=== PATIENT | male | born 1955 | race Two or more races ===

== ENCOUNTER 2023-03-14 16:41 | Inpatient (IN) | payer OTHER ==
[~2023-03-14] VITALS: Ht 180.3 cm; Wt 113.4 kg
[2023-03-14] MEDS ORDERED: BUMETANIDE1 MG PO (17:52)
[2023-03-14] MEDS ORDERED: ISOSORBIDE DINI30 MG PO (17:52)
[2023-03-14] MEDS ORDERED: SPIRONOLACTONE25 MG PO (17:53)
[2023-03-14] MEDS ORDERED: DILTIAZEM ER240 M3 PO (17:53)
[2023-03-14] MEDS ORDERED: LOSARTAN POTAS100 MG PO (17:53)
[2023-03-14] MEDS ORDERED: HORIZANT300 MG PO (17:53)
[2023-03-14] MEDS ORDERED: SERTRALINE20 MG/1 ML PO (17:54)
[2023-03-14] MEDS ORDERED: MEMANTINE H2 MG/1 ML PO (17:54)
[2023-03-14] MEDS ORDERED: NOVOLIN 70100 UNIT/1 IM (17:55)
[2023-03-14 19:02] LABS: HEMATOCRIT 25.5 % (39.0-48.0); MEAN CELL VOLUME 92.1 fL (80.0-100.00); MEAN CORPUSCULAR HGB CONC 32.2 g/dl (32.0-36.0); RED BLOOD COUNT 2.77 M/uL (4.00-6.00); RED CELL DISTRIBUTION WIDTH 15.4 % (11.5-14.5)
[2023-03-14 19:07] LABS: HEMOGLOBIN 8.2 g/dL (13-16.00); MEAN CORPUSCULAR HEMOGLOBIN 29.6 pg (27.00-32.0); PLATELET COUNT 513 K/uL (150-450)
[2023-03-14 19:16] LABS: INR 0.98; PARTIAL THROMBOPLASTIN TIME 27.7 SECONDS (22.0-34.0); PROTHROMBIN TIME 10.3 SECONDS (9.0-11.5)
[2023-03-14 19:18] LABS: PH,URINE 5.5 (5.0-8.0); URINE APPEARANCE Clear; URINE BILIRRUBIN Negative (NEGATIVE); URINE BLOOD Trace; URINE COLOR Yellow; URINE LEUKOCYTE Negative; URINE NITRATE Negative; URINE UROBILINOGEN 0.2 E.U./dl
[2023-03-14 19:22] LABS: URINE BACTERIA 31.4 uL (0.0-1933); URINE WBC 3.7 uL (0.0-23.2)
[2023-03-14 19:24] LABS: CALCIUM 10.4 mg/dL (8.5-10.1)
[2023-03-14 19:29] LABS: URINE GLUCOSE 100 MG/DL (NEGATIVE); URINE PROTEIN 300 (NEGATIVE)
[2023-03-14 19:44] LABS: GFR 4.4
[2023-03-14 19:46] LABS: CREATININE SERUM 11.6 mg/dL (0.70-1.30)
[2023-03-14 19:47] LABS: POTASSIUM 7.09 mEq/L (3.5-5.1)
[2023-03-14 20:56] LABS: ABG PH 7.239 (7.35-7.45); ABG pCO2 29.4 mmHg (35-45); BASE EXCESS -13.6 mmol/l; BICARBONATE 12.3 mmol/l (23-25); SaO2 95.5 %; Tco2 13.2 mmol/l
[2023-03-14 20:57] LABS: allen test SATISFACTORY; o2 21 %; puncture site RADIAL LEFT
[2023-03-15 01:19] LABS: CKMB 5.1 NG/ML (0.5-3.6)
[2023-03-15 05:57] LABS: ABG PH 7.271 (7.35-7.45); ABG PO2 116.3 mmHg (80-100); ABG pCO2 29.3 mmHg (35-45)
[2023-03-15 05:58] LABS: BASE EXCESS -12.1 mmol/l; BICARBONATE 13.2 mmol/l (23-25); SaO2 97.5 %; Tco2 14.1 mmol/l; allen test SATISFACTORY; o2 28 %; puncture site RADIAL LEFT
[2023-03-15 07:36] LABS: PH,URINE 5.5 (5.0-8.0); URINE APPEARANCE Clear; URINE BILIRRUBIN Negative (NEGATIVE); URINE BLOOD Large; URINE COLOR Yellow; URINE LEUKOCYTE Negative; URINE NITRATE Negative; URINE UROBILINOGEN 0.2 E.U./dl
[2023-03-15 07:38] LABS: URINE BACTERIA 210.4 uL (0.0-1933); URINE EPITHELIAL CELLS 15.6 uL (0.0-38.8); URINE RBC 1534.3 uL (0.0-20.8); URINE WBC 41.2 uL (0.0-23.2)
[2023-03-15 07:47] LABS: URINE GLUCOSE 100 MG/DL (NEGATIVE); URINE PROTEIN 300 (NEGATIVE)
[2023-03-15 08:05] LABS: HEMATOCRIT 24.3 % (39.0-48.0); MEAN CELL VOLUME 91.7 fL (80.0-100.00); MEAN CORPUSCULAR HGB CONC 32.8 g/dl (32.0-36.0); RED BLOOD COUNT 2.64 M/uL (4.00-6.00); RED CELL DISTRIBUTION WIDTH 15.4 % (11.5-14.5)
[2023-03-15 08:32] LABS: INR 0.98; PARTIAL THROMBOPLASTIN TIME 25.7 SECONDS (22.0-34.0); PROTHROMBIN TIME 10.3 SECONDS (9.0-11.5)
[2023-03-15 08:56] LABS: CKMB 5.3 NG/ML (0.5-3.6)
[2023-03-15 09:01] LABS: ALBUMIN 3.3 gm/dL (3.4-5.0); ALKALINE PHOSPHATASE 58 U/L (50-136); ALT/SGPT 17 U/L (12-78); AST/SGOT 10 U/L (15-37); BILIRUBIN TOTAL 0.43 mg/dL (0.3-1.2); BILIRUBIN,CONJUGATED < 0.10 mg/dL (0.0-0.2); BILIRUBIN,UNCONJUGATED 0.33 mg/dL (0.0-0.6); CHLORIDE 114 mmol/L (98-107); CHOL HDL RATIO 4.3 (0-5.0); CHOLESTEROL 153 mg/dL (0-200); GLOBULINA 3.1 G/DL (2.4-3.5); GLUCOSE FASTING 121 mg/dL (65-100); HDL 36 mg/dl (40-60); SODIUM 139 mmol/L (136-145); TOTAL PROTEIN 6.4 gm/dL (6.4-8.2)
[2023-03-15 09:32] LABS: MEAN CORPUSCULAR HEMOGLOBIN 30.3 pg (27.00-32.0)
[2023-03-15 09:33] LABS: PLATELET COUNT 527 K/uL (150-450)
[2023-03-15 09:52] LABS: ANION GAP 19 (10.0-20.0); BUN CREA RATIO 10 (7.0-25.0); C-REACTIVE PROTEIN 0.96 MG/DL (0.00-0.29); GFR 4.78; LDL 75 mg/dl (0-130); OSMOLALITY SERUM 313 MOSM/KG (275-295); VLDL 41 (0-39)
[2023-03-15 09:54] LABS: POTASSIUM 6.85 mEq/L (3.5-5.1)
[2023-03-15 09:55] LABS: BLOOD UREA NITROGEN 108 mg/dL (7-18)
[2023-03-15 09:56] LABS: CARBON DIOXIDE 13 mEq/L (21-32); TRIGLYCERIDES 208 mg/dL (0-150)
[2023-03-15 11:27] LABS: ERYTHROCYTE SEDIMENTATION RATE > 130 mm/hr
[2023-03-16 09:13] LABS: PARTIAL THROMBOPLASTIN TIME 26.5 SECONDS (22.0-34.0); PROTHROMBIN TIME 10.5 SECONDS (9.0-11.5)
[2023-03-16 12:20] LABS: ALBUMIN 3.2 gm/dL (3.4-5.0); CALCIUM 9.6 mg/dL (8.5-10.1); PHOSPHOROUS 7.2 mg/dL (2.5-4.9)
[2023-03-16 12:34] LABS: GFR 4.83; POTASSIUM 5.94 mEq/L (3.5-5.1)
[2023-03-16 12:35] LABS: CREATININE SERUM 10.7 mg/dL (0.70-1.30)
[2023-03-17 07:18] LABS: CALCIUM 8.7 mg/dL (8.5-10.1); GFR 5.5; POTASSIUM 3.57 mEq/L (3.5-5.1)
[2023-03-17 08:09] LABS: CREATININE SERUM 9.57 mg/dL (0.70-1.30)
[2023-03-17 08:28] LABS: MEAN CELL VOLUME 90.6 fL (80.0-100.00); MEAN CORPUSCULAR HGB CONC 33.4 g/dl (32.0-36.0); PLATELET COUNT 462 K/uL (150-450); RED BLOOD COUNT 2.38 M/uL (4.00-6.00); RED CELL DISTRIBUTION WIDTH 14.9 % (11.5-14.5)
[2023-03-17 08:42] LABS: MEAN CORPUSCULAR HEMOGLOBIN 30.2 pg (27.00-32.0)
[2023-03-17 08:44] LABS: HEMATOCRIT 21.5 % (39.0-48.0); HEMOGLOBIN 7.2 g/dL (13-16.00)
[2023-03-18 09:34] LABS: HEMATOCRIT 26.1 % (39.0-48.0); HEMOGLOBIN 8.6 g/dL (13-16.00); MEAN CELL VOLUME 90.5 fL (80.0-100.00); MEAN CORPUSCULAR HEMOGLOBIN 29.7 pg (27.00-32.0); MEAN CORPUSCULAR HGB CONC 32.8 g/dl (32.0-36.0); PLATELET COUNT 433 K/uL (150-450); RED BLOOD COUNT 2.89 M/uL (4.00-6.00); RED CELL DISTRIBUTION WIDTH 15.2 % (11.5-14.5)
[2023-03-19 20:26] LABS: HEMATOCRIT 26.4 % (39.0-48.0); MEAN CELL VOLUME 89.5 fL (80.0-100.00); MEAN CORPUSCULAR HGB CONC 32.9 g/dl (32.0-36.0); PLATELET COUNT 370 K/uL (150-450); RED BLOOD COUNT 2.95 M/uL (4.00-6.00); RED CELL DISTRIBUTION WIDTH 14.4 % (11.5-14.5)
[2023-03-19 20:27] LABS: HEMOGLOBIN 8.7 g/dL (13-16.00); MEAN CORPUSCULAR HEMOGLOBIN 29.4 pg (27.00-32.0)
[2023-03-20 07:57] LABS: HEMATOCRIT 26.1 % (39.0-48.0); MEAN CELL VOLUME 90.1 fL (80.0-100.00); MEAN CORPUSCULAR HEMOGLOBIN 29.7 pg (27.00-32.0); PLATELET COUNT 386 K/uL (150-450); RED BLOOD COUNT 2.89 M/uL (4.00-6.00); RED CELL DISTRIBUTION WIDTH 14.8 % (11.5-14.5)
[2023-03-20 08:01] LABS: HEMOGLOBIN 8.6 g/dL (13-16.00)
[2023-03-20 08:22] LABS: CALCIUM 8.2 mg/dL (8.5-10.1); POTASSIUM 3.04 mEq/L (3.5-5.1)
[2023-03-20 09:07] LABS: CREATININE SERUM 5.67 mg/dL (0.70-1.30); GFR 10.06
[2023-03-20 11:12] LABS: ABG PH 7.399 (7.35-7.45); ABG PO2 66.7 mmHg (80-100); ABG pCO2 41.4 mmHg (35-45); BASE EXCESS 0.2 mmol/l; SaO2 92.9 %; Tco2 26.3 mmol/l; o2 36 %
[2023-03-20 11:13] LABS: allen test SATISFACTORY; puncture site RADIAL LEFT
[2023-03-22 08:45] LABS: ALBUMIN 1.8 gm/dL (3.4-5.0); CALCIUM 7.8 mg/dL (8.5-10.1); GFR 10.42; PHOSPHOROUS 4.1 mg/dL (2.5-4.9); POTASSIUM 3.28 mEq/L (3.5-5.1)
[2023-03-22 09:06] LABS: CREATININE SERUM 5.5 mg/dL (0.70-1.30)
[2023-03-22 09:39] LABS: MEAN CELL VOLUME 92.2 fL (80.0-100.00); MEAN CORPUSCULAR HGB CONC 33.2 g/dl (32.0-36.0); PLATELET COUNT 337 K/uL (150-450); RED BLOOD COUNT 2.42 M/uL (4.00-6.00)
[2023-03-22 10:01] LABS: HEMATOCRIT 22.4 % (39.0-48.0); HEMOGLOBIN 7.4 g/dL (13-16.00); MEAN CORPUSCULAR HEMOGLOBIN 30.5 pg (27.00-32.0)
[2023-03-23 09:48] LABS: HEMATOCRIT 25.2 % (39.0-48.0); MEAN CELL VOLUME 89.2 fL (80.0-100.00); MEAN CORPUSCULAR HEMOGLOBIN 29.6 pg (27.00-32.0); MEAN CORPUSCULAR HGB CONC 33.1 g/dl (32.0-36.0); PLATELET COUNT 376 K/uL (150-450); RED BLOOD COUNT 2.83 M/uL (4.00-6.00); RED CELL DISTRIBUTION WIDTH 15.3 % (11.5-14.5)
[2023-03-23 09:49] LABS: HEMOGLOBIN 8.4 g/dL (13-16.00)
[2023-03-24 19:38] LABS: HEMATOCRIT 29.9 % (39.0-48.0); HEMOGLOBIN 9.8 g/dL (13-16.00); MEAN CELL VOLUME 88.9 fL (80.0-100.00); MEAN CORPUSCULAR HEMOGLOBIN 29.2 pg (27.00-32.0); MEAN CORPUSCULAR HGB CONC 32.9 g/dl (32.0-36.0); PLATELET COUNT 411 K/uL (150-450); RED BLOOD COUNT 3.36 M/uL (4.00-6.00); RED CELL DISTRIBUTION WIDTH 14.6 % (11.5-14.5)
[2023-03-26 08:10] LABS: hav igm Negative (Negative); hcv Non Reactive (Non Reactive); hep b c Negative (Negative)
[2023-03-26 12:04] LABS: ABG PH 7.375 (7.35-7.45)
[2023-03-26 12:05] LABS: ABG pCO2 36.2 mmHg (35-45); BASE EXCESS -3.8 mmol/l; BICARBONATE 20.7 mmol/l (23-25); SaO2 88.8 %; Tco2 21.8 mmol/l
[2023-03-26 12:06] LABS: ABG PO2 58.4 mmHg (80-100); allen test SATISFACTORY; o2 32 %; puncture site RADIAL RIGHT
[2023-03-28 07:40] LABS: HEMATOCRIT 27.3 % (39.0-48.0); MEAN CELL VOLUME 88.4 fL (80.0-100.00); MEAN CORPUSCULAR HEMOGLOBIN 29.1 pg (27.00-32.0); MEAN CORPUSCULAR HGB CONC 32.9 g/dl (32.0-36.0); PLATELET COUNT 521 K/uL (150-450); RED BLOOD COUNT 3.09 M/uL (4.00-6.00); RED CELL DISTRIBUTION WIDTH 14.8 % (11.5-14.5)
[2023-03-28 14:30] LABS: ABG PH 7.457 (7.35-7.45); ABG PO2 54.8 mmHg (80-100); ABG pCO2 34.3 mmHg (35-45); BASE EXCESS 0.5 mmol/l; BICARBONATE 23.7 mmol/l (23-25); SaO2 89.9 %
[2023-03-28 14:31] LABS: Tco2 24.8 mmol/l; allen test SATISFACTORY; o2 21 %; puncture site RADIAL LEFT
== END 2023-03-31 20:11 | disposition home or self-care (01) | DRG 673 ==
LOC: ER 16:41 → ICU-2 22:57 → ICU 22:57 → SURH 03-26 19:46
PROVIDERS: General Practice; Internal Medicine; Internal Medicine Infectious Disease; Specialist/Technologist, Other Nephrology; ADMIT Internal Medicine; ATTEND Internal Medicine
PROC: 0JHD3XZ Insertion of Tunneled Vascular Access Device into Right Upper Arm Subcutaneous Tissue and Fascia, Percutaneous Approach (ICD-10-PCS; principal; 2023-03-14)
PROC: 5A1D70Z Performance of Urinary Filtration, Intermittent, Less than 6 Hours Per Day (ICD-10-PCS; 2023-03-14)
PROC: BT41ZZZ Ultrasonography of Right Kidney (ICD-10-PCS; 2023-03-14)
PROC: 30243N1 Transfusion of Nonautologous Red Blood Cells into Central Vein, Percutaneous Approach (ICD-10-PCS; 2023-03-17)
PROC: 5A1D70Z Performance of Urinary Filtration, Intermittent, Less than 6 Hours Per Day (ICD-10-PCS; 2023-03-19)
PROC: BW40ZZZ Ultrasonography of Abdomen (ICD-10-PCS; 2023-03-21)
PROC: B54PZZZ Ultrasonography of Bilateral Upper Extremity Veins (ICD-10-PCS; 2023-03-24)
DX: N17.9 Acute kidney failure, unspecified (principal); J18.9 Pneumonia, unspecified organism; E87.20 Acidosis, unspecified; I12.0 Hypertensive chronic kidney disease with stage 5 chronic kidney disease or end stage renal disease; L02.214 Cutaneous abscess of groin; J91.8 Pleural effusion in other conditions classified elsewhere; E87.5 Hyperkalemia; D64.9 Anemia, unspecified; I16.0 Hypertensive urgency; I12.9 Hypertensive chronic kidney disease with stage 1 through stage 4 chronic kidney disease, or unspecified chronic kidney disease; N18.9 Chronic kidney disease, unspecified; D63.1 Anemia in chronic kidney disease; E66.9 Obesity, unspecified; N18.6 End stage renal disease; B96.1 Klebsiella pneumoniae [K. pneumoniae] as the cause of diseases classified elsewhere; R79.82 Elevated C-reactive protein (CRP); R09.02 Hypoxemia; B95.2 Enterococcus as the cause of diseases classified elsewhere

== ENCOUNTER 2024-06-17 11:25 | Inpatient (IN) | payer OTHER ==
[~2024-06-17] VITALS: Ht 180.3 cm; Wt 99.8 kg
[~2024-06-17 11:25] MED LIST: BUMETANIDE1 MG PO; DILTIAZEM ER240 M3 PO; HORIZANT300 MG PO; ISOSORBIDE DINI30 MG PO; LOSARTAN POTAS100 MG PO; MEMANTINE H2 MG/1 ML PO; NOVOLIN 70100 UNIT/1 IM; SERTRALINE20 MG/1 ML PO; SPIRONOLACTONE25 MG PO
--- NOTE | 2024-06-17 12:00 | NUR ---
SE RECIBE PTE ALERTA EN COMPANIA DE FAMILIAR EN SILLA DE CESAR.PTE REFIERE TENER DIFICULTAD RESPIRATORIA,DOLOR DE PECHO Y VOMITOS DESDE HOY EN LA MANANA.PTE REFIERE TENER DIALISIS EL HILARIO DE HOY.PTE DE DR.VICTOR RYAN.SE HARRY EKG Y SE PRESENTA A EL CUAL ORDENA UBICAR PTE EN CHEST PAIN.SE OBSERVA WUINTON EN LADO DERECHO DE PECHO VENDAJES LIMPIOS Y SECOS.
[2024-06-17] MEDS ORDERED: HYDRALAZINE HCL10 MG PO (12:05)
[2024-06-17] MEDS ORDERED: ASPIRIN 325 MG TABLET.EC PO STA (12:19)
[2024-06-17] MEDS ORDERED: FUROsemide 40 MG/4 ML VIAL ONE ×2 (12:30→22:02)
[2024-06-17] MEDS ORDERED: FUROsemide 40 MG/4 ML VIAL IV ONE ×2 (12:30→22:15)
--- NOTE | 2024-06-17 12:30 | NUR ---
SE RECIBE PTE ALERTA ORIENTADO X3.SE CHAN MUESTRAS DE LABORATORIO USANDO MEDIDAS ASEPTICAS.S ADMINISTRAN MEDICAMENTOS JACI ORDEN MEDICA.SE ORIENTA PTE SOBRE OBJETIVO DE [place] MEDICO.SE CONECTA PTE A MONITOR CARDIACO.SE COLOCA SONDA URINARIA A GRAVEDAD USANDO MEDIDAS ASEPTICAS E ESTERILES.
[2024-06-17 13:05] LABS: ABG PH 7.396 (7.35-7.45); BASE EXCESS -2.6 mmol/l; BICARBONATE 21.6 mmol/l (23-25); SaO2 74.4 %; Tco2 22.7 mmol/l
[2024-06-17 13:07] LABS: PH,URINE 7.5 (5.0-8.0); URINE APPEARANCE Cloudy; URINE BILIRRUBIN Negative (NEGATIVE); URINE BLOOD Moderate; URINE COLOR Yellow; URINE KETONE Negative (NEGATIVE); URINE LEUKOCYTE Negative; URINE NITRATE Negative; URINE PROTEIN >=1000 (NEGATIVE); URINE UROBILINOGEN 0.2 E.U./dl
[2024-06-17 13:08] LABS: URINE BACTERIA 48.9 uL (0.0-1933); URINE EPITHELIAL CELLS 6.4 uL (0.0-38.8); URINE RBC 243.3 uL (0.0-20.8); URINE WBC 53.5 uL (0.0-23.2)
[2024-06-17] MEDS ORDERED: ASPIRIN 325 MG TABLET.EC PO ONE (13:09)
[2024-06-17] MEDS ORDERED: IPRATROPIUM BROMIDE 0.5 MG/2.5 ML AMPUL.NEB IH ONE ×3 (13:09→18:10)
[2024-06-17 13:12] LABS: HEMATOCRIT 29.5 % (39.0-48.0); MEAN CELL VOLUME 96.9 fL (80.0-100.00); MEAN CORPUSCULAR HGB CONC 32.6 g/dl (32.0-36.0); PLATELET COUNT 395 K/uL (150-450); RED BLOOD COUNT 3.05 M/uL (4.00-6.00); RED CELL DISTRIBUTION WIDTH 16.8 % (11.5-14.5)
[2024-06-17 13:14] LABS: HEMOGLOBIN 9.6 g/dL (13-16.00); MEAN CORPUSCULAR HEMOGLOBIN 31.4 pg (27.00-32.0)
[2024-06-17 13:39] LABS: URINE CAST 1.17 uL (0.0-1.40); URINE GLUCOSE 500 MG/DL (NEGATIVE)
[2024-06-17 13:40] LABS: ABG PO2 40.1 mmHg (80-100)
[2024-06-17 13:41] LABS: allen test SATISFACTORY; o2 21 %; puncture site RADIAL LEFT
[2024-06-17] MEDS ORDERED: ACETAMINOPHEN 500 MG GEL..CAP PO ONE (14:01)
[2024-06-17 14:05] LABS: INR 1.03; PARTIAL THROMBOPLASTIN TIME 26.2 SECONDS (22.0-34.0); PROTHROMBIN TIME 11.2 SECONDS (9.0-11.5)
[2024-06-17 14:15] LABS: CALCIUM 9.1 mg/dL (8.5-10.1); GFR 6.37; POTASSIUM 5.32 mEq/L (3.5-5.1)
[2024-06-17 14:25] LABS: CREATININE SERUM 8.4 mg/dL (0.70-1.30)
[2024-06-17] MEDS ORDERED: NITROGLYCERIN IN 5 % DEXTROSE 50 MG/250 ML BOTTLE IV SCH (14:30)
[2024-06-17] MEDS ORDERED: NITROGLYCERIN IN 5 % DEXTROSE 50 MG/250 ML BOTTLE IV ONE (14:38)
--- NOTE | 2024-06-17 15:36 | NUR ---
SE RECIBE PTE ALERTA Y ORIENTADO X3 EN CAMA BAJA CON BARANDAS LEEVADAS Y CAEBZAL A [address]. SE OBSERVA NONREBREATHING AL 100%, LA CUEL TOLERA AL MOMENTO. PTE CONECTADO A MONITOR CARDIACO Y SATUROMETRO. CANLIZADO EN MANO IZQUIERDA CON ANGIO #20 Y #24 PATENTE LAINA DE EDEMA Y ENROJEICMIENTO. RECIBIENDO TRIDIL 50MG/250ML BAJANDO A 3MLS/HR. SE OBSERVA COURTNEY EL LADO DERECHO, VENDAJE LIMPIO Y SECO. SONDA URINARIA BAJANDO A GRAVEDAD, SE OBSERVA ORINA COLOR AMARILLO INTENSO. EXTREMIDADES INFERIORES CON EDEMA. PENDIENTE CONSULTA CON DR. MARTIN.
[2024-06-17] MEDS ORDERED: CEFTRIAXONE SODIUM 2,000 MG in 0.9 % SODIUM CHLORIDE 100 ML IV SCH (17:31)
[2024-06-17] MEDS ORDERED: FUROsemide 20 MG/2 ML VIAL IV SCH (17:31)
[2024-06-17] MEDS ORDERED: LEVALBUTEROL HCL 1.25 MG/3 ML SOLUTION IH SCH ×2 (17:36→17:45)
[2024-06-17] MEDS ORDERED: IPRATROPIUM BROMIDE 0.5 MG/2.5 ML AMPUL.NEB IH SCH ×2 (17:36→17:45)
[2024-06-17] MEDS ORDERED: VANCOMYCIN HCL 1,000 MG VIAL IV ONE (17:45)
[2024-06-17] MEDS ORDERED: ACETAMINOPHEN 500 MG GEL..CAP PO PRN (17:45)
[2024-06-17] MEDS ORDERED: LEVALBUTEROL HCL 1.25 MG/3 ML SOLUTION IH ONE (18:10)
[2024-06-17] MEDS ORDERED: VANCOMYCIN HCL 1,000 MG VIAL ONE (18:11)
[2024-06-17] MEDS ORDERED: CEFTRIAXONE SODIUM 2,000 MG VIAL ONE (18:11)
[2024-06-17] MEDS ORDERED: FUROsemide 20 MG/2 ML VIAL ONE (18:11)
[2024-06-17 19:02] VITALS: BP 141/91; O2SAT 100
[2024-06-17 19:31] LABS: D DIMER 11.87 MG/L; PARTIAL THROMBOPLASTIN TIME 30.5 SECONDS (22.0-34.0)
[2024-06-17 19:42] LABS: INR 1.05; PROTHROMBIN TIME 11.4 SECONDS (9.0-11.5)
[2024-06-17] MEDS ORDERED: HEPARIN SODIUM,PORCINE 1,000 UNITS/ML VIAL IV SCH (21:00)
[2024-06-17] MEDS ORDERED: HEPARIN SODIUM,PORCINE 1,000 UNITS/ML VIAL SPEPROC ONE ×2 (21:00)
[2024-06-17 21:21] VITALS: BP 133/86; O2SAT 100
[2024-06-17 23:00] VITALS: BP 141/62; O2SAT 98
[2024-06-18] VITALS (12 sets, daily range): BP systolic 119–188; BP diastolic 65–108; O2SAT 98–100
[2024-06-18 07:50] LABS: CHOL HDL RATIO 2.1 (0-5.0); MAGNESIUM 2.5 mg/dL (1.8-2.4); PHOSPHOROUS 6.8 mg/dL (2.5-4.9); TSH 1.29 uIU/mL (0.358-3.74)
[2024-06-18] MEDS ORDERED: LEVALBUTEROL HCL 1.25 MG/3 ML SOLUTION IH ONE ×3 (08:03→16:02)
[2024-06-18] MEDS ORDERED: IPRATROPIUM BROMIDE 0.5 MG/2.5 ML AMPUL.NEB IH ONE ×2 (08:03→13:11)
[2024-06-18] MEDS ORDERED: FUROsemide 20 MG TABLET PO ONE (08:57)
[2024-06-18] MEDS ORDERED: CEFTRIAXONE SODIUM 2,000 MG VIAL ONE (08:58)
[2024-06-18] MEDS ORDERED: FAMOTIDINE/PF 20 MG/2 ML VIAL ONE (08:58)
[2024-06-18] MEDS ORDERED: ENOXAPARIN SODIUM 30 MG/0.3 ML SYRINGE SUBCUTANEO SCH (09:00)
[2024-06-18] MEDS ORDERED: FAMOTIDINE/PF 20 MG in 0.9 % SODIUM CHLORIDE 8 ML IV PUSH SCH (09:00)
[2024-06-18 10:29] LABS: ABG PO2 192.8 mmHg (80-100); ABG pCO2 42.1 mmHg (35-45); BASE EXCESS -5.3 mmol/l; BICARBONATE 20.7 mmol/l (23-25); SaO2 99.5 %
[2024-06-18 15:32] LABS: o2 100 %
[2024-06-18 15:33] LABS: allen test SATISFACTORY; puncture site RADIAL RIGHT
[2024-06-18] MEDS ORDERED: HEPARIN SODIUM,PORCINE 5,000 UNITS/ML VIAL ONE ×2 (15:59→16:00)
[2024-06-18] MEDS ORDERED: MEROPENEM 500 MG/VIAL VIAL IV SCH (17:00)
[2024-06-18] MEDS ORDERED: VANCOMYCIN HCL 5 MG/ML REDILUIDO IV ONE (18:00)
[2024-06-18] MEDS ORDERED: DIPHENHYDRAMINE HCL 50 MG/ML VIAL 1ML ONE (18:00)
[2024-06-18] MEDS ORDERED: DIPHENHYDRAMINE HCL 50 MG/ML VIAL 1ML IV STA (19:02)
[2024-06-18] MEDS ORDERED: CLEVIDIPINE BUTYRATE 50 MG/100 ML VIAL IV ONE (22:29)
[2024-06-18] MEDS ORDERED: CLEVIDIPINE BUTYRATE 100 ML IV SCH (22:30)
[2024-06-19] VITALS (22 sets, daily range): BP systolic 118–186; BP diastolic 65–99; O2SAT 93–100
[2024-06-19] MEDS ORDERED: LORazepam 2 MG/ML VIAL ONE (04:36)
[2024-06-19] MEDS ORDERED: LORazepam 2 MG/ML VIAL IV ONE (04:45)
[2024-06-19 08:04] LABS: HEMATOCRIT 24.5 % (39.0-48.0); MEAN CELL VOLUME 97.4 fL (80.0-100.00); MEAN CORPUSCULAR HGB CONC 32.3 g/dl (32.0-36.0); PLATELET COUNT 292 K/uL (150-450); RED BLOOD COUNT 2.51 M/uL (4.00-6.00); RED CELL DISTRIBUTION WIDTH 16.6 % (11.5-14.5)
[2024-06-19 08:24] LABS: ALBUMIN 2.9 gm/dL (3.4-5.0); BILIRUBIN TOTAL 0.53 mg/dL (0.3-1.2); CALCIUM 8.8 mg/dL (8.5-10.1); GLOBULINA 3.3 G/DL (2.4-3.5); MAGNESIUM 2.5 mg/dL (1.8-2.4); POTASSIUM 5.18 mEq/L (3.5-5.1); TOTAL PROTEIN 6.2 gm/dL (6.4-8.2)
[2024-06-19 08:33] LABS: MEAN CORPUSCULAR HEMOGLOBIN 31.4 pg (27.00-32.0)
[2024-06-19 08:34] LABS: HEMOGLOBIN 7.9 g/dL (13-16.00)
[2024-06-19 10:28] LABS: C-REACTIVE PROTEIN 32.3 MG/DL (0.00-0.29); GFR 7.64
[2024-06-19 10:29] LABS: CREATININE SERUM 7.18 mg/dL (0.70-1.30)
[2024-06-19 10:39] LABS: ABG PH 7.293 (7.35-7.45); ABG PO2 104.4 mmHg (80-100); ABG pCO2 40.4 mmHg (35-45); BASE EXCESS -6.9 mmol/l; BICARBONATE 19.1 mmol/l (23-25); Tco2 20.4 mmol/l
[2024-06-19 15:25] LABS: allen test SATISFACTORY; o2 100 %; puncture site RADIAL RIGHT
[2024-06-19] MEDS ORDERED: HEPARIN SODIUM,PORCINE 5,000 UNITS/ML VIAL ONE (18:11)
[2024-06-19] MEDS ORDERED: AMIODARONE HCL 50 MG/ML AMPUL IV ONE ×2 (19:30→19:45)
[2024-06-19] MEDS ORDERED: AMIODARONE IN DEXTROSE,ISO-OSM 360 MG/200 ML IV.SOLN IV ONE (19:31)
[2024-06-19] MEDS ORDERED: INSULIN LISPRO 1,000 UNIT/10 ML UNITS SUBCUTANEO PRN (20:00)
[2024-06-19] MEDS ORDERED: DEXTROSE 50 % IN WATER 0.5 G/ML DISP.SYRIN IV PRN (20:00)
[2024-06-19] MEDS ORDERED: DIPHENHYDRAMINE HCL 50 MG/ML VIAL 1ML IV ONE (20:30)
[2024-06-19] MEDS ORDERED: HALOPERIDOL LACTATE 5 MG/ML AMPUL IM ONE (20:30)
[2024-06-19] MEDS ORDERED: VANCOMYCIN HCL 500 MG VIAL IV SCH (21:00)
[2024-06-19 23:34] LABS: HEMATOCRIT 32.6 % (39.0-48.0); HEMOGLOBIN 10.7 g/dL (13-16.00); MEAN CELL VOLUME 94.6 fL (80.0-100.00); MEAN CORPUSCULAR HEMOGLOBIN 31.1 pg (27.00-32.0); MEAN CORPUSCULAR HGB CONC 32.9 g/dl (32.0-36.0); PLATELET COUNT 260 K/uL (150-450); RED BLOOD COUNT 3.44 M/uL (4.00-6.00)
[2024-06-20] VITALS (24 sets, daily range): BP systolic 107–158; BP diastolic 63–95; O2SAT 90–100
[2024-06-20] MEDS ORDERED: AMIODARONE IN DEXTROSE,ISO-OSM 360 MG/200 ML IV.SOLN IV ONE (02:31)
[2024-06-20 08:22] LABS: ALBUMIN 2.7 gm/dL (3.4-5.0); BILIRUBIN TOTAL 0.69 mg/dL (0.3-1.2); CALCIUM 8.4 mg/dL (8.5-10.1); GFR 9.58; GLOBULINA 3.6 G/DL (2.4-3.5); MAGNESIUM 2.3 mg/dL (1.8-2.4); PHOSPHOROUS 7.2 mg/dL (2.5-4.9); POTASSIUM 5.09 mEq/L (3.5-5.1); TOTAL PROTEIN 6.3 gm/dL (6.4-8.2)
[2024-06-20 08:27] LABS: CREATININE SERUM 5.9 mg/dL (0.70-1.30)
[2024-06-20 09:11] LABS: HEMATOCRIT 31.1 % (39.0-48.0); MEAN CELL VOLUME 95.7 fL (80.0-100.00); MEAN CORPUSCULAR HEMOGLOBIN 30.8 pg (27.00-32.0); MEAN CORPUSCULAR HGB CONC 32.2 g/dl (32.0-36.0); PLATELET COUNT 260 K/uL (150-450); RED BLOOD COUNT 3.25 M/uL (4.00-6.00); RED CELL DISTRIBUTION WIDTH 18.2 % (11.5-14.5)
[2024-06-20] MEDS ORDERED: FUROsemide 40 MG/4 ML VIAL ONE (10:18)
[2024-06-20] MEDS ORDERED: FUROsemide 40 MG TABLET PO STA (10:24)
[2024-06-20] MEDS ORDERED: FUROsemide 40 MG/4 ML VIAL IV STA (10:29)
[2024-06-20] MEDS ORDERED: METOPROLOL TARTRATE 25 MG TABLET PO STA (13:55)
[2024-06-20 13:57] LABS: ABG PO2 65.6 mmHg (80-100); ABG pCO2 44.1 mmHg (35-45)
[2024-06-20 13:58] LABS: BASE EXCESS -7.7 mmol/l; BICARBONATE 19.3 mmol/l (23-25); SaO2 88.1 %; Tco2 20.6 mmol/l
[2024-06-20 13:59] LABS: allen test SATISFACTORY; o2 100 %; puncture site RADIAL RIGHT
[2024-06-20] MEDS ORDERED: HEPARIN SODIUM,PORCINE 5,000 UNITS/ML VIAL ONE (17:02)
[2024-06-20] MEDS ORDERED: CITRIC ACID/SODIUM CITRATE 30 ML BLIST.PACK PO SCH (18:09)
[2024-06-20] MEDS ORDERED: METOPROLOL TARTRATE 25 MG TABLET PO SCH (21:00)
[2024-06-21] VITALS (16 sets, daily range): BP systolic 105–159; BP diastolic 71–96; O2SAT 95–100
[2024-06-21 07:18] LABS: HEMATOCRIT 35.3 % (39.0-48.0); HEMOGLOBIN 11.4 g/dL (13-16.00); MEAN CELL VOLUME 94.8 fL (80.0-100.00); MEAN CORPUSCULAR HEMOGLOBIN 30.6 pg (27.00-32.0); MEAN CORPUSCULAR HGB CONC 32.3 g/dl (32.0-36.0); PLATELET COUNT 295 K/uL (150-450); RED BLOOD COUNT 3.73 M/uL (4.00-6.00)
[2024-06-21 07:27] LABS: ALBUMIN 2.8 gm/dL (3.4-5.0); BILIRUBIN TOTAL 0.71 mg/dL (0.3-1.2); CALCIUM 9.1 mg/dL (8.5-10.1); GFR 10.57; GLOBULINA 4.1 G/DL (2.4-3.5); MAGNESIUM 2.8 mg/dL (1.8-2.4); PHOSPHOROUS 7.7 mg/dL (2.5-4.9); POTASSIUM 5.59 mEq/L (3.5-5.1); TOTAL PROTEIN 6.9 gm/dL (6.4-8.2)
[2024-06-21 07:57] LABS: CREATININE SERUM 5.42 mg/dL (0.70-1.30)
[2024-06-21 08:37] LABS: ABG PH 7.237 (7.35-7.45); BASE EXCESS -8.2 mmol/l; BICARBONATE 19.1 mmol/l (23-25); SaO2 94.4 %; Tco2 20.6 mmol/l
[2024-06-21 14:23] LABS: allen test SATISFACTORY; o2 90 %; puncture site RADIAL LEFT
[2024-06-21] MEDS ORDERED: SODIUM POLYSTYRENE SULFONATE 15 G/4 TSP TSP PO NR (15:30)
[2024-06-21] MEDS ORDERED: HEPARIN SODIUM,PORCINE 5,000 UNITS/ML VIAL ONE (16:01)
[2024-06-21] MEDS ORDERED: HEPARIN SODIUM,PORCINE 5,000 UNITS/ML VIAL IJ SCH (16:30)
[2024-06-22] VITALS (11 sets, daily range): BP systolic 53–131; BP diastolic 28–88; O2SAT 100
[2024-06-22] MEDS ORDERED: NOREPINEPHRINE BITARTRATE 1 MG/ML AMPUL IV ONE (06:19)
[2024-06-22] MEDS ORDERED: NOREPINEPHRINE BITARTRATE 8 MG in DEXTROSE 5 % IN WATER 250 ML IV SCH (06:30)
[2024-06-22 06:33] LABS: HEMATOCRIT 38.5 % (39.0-48.0); HEMOGLOBIN 12.4 g/dL (13-16.00); MEAN CORPUSCULAR HEMOGLOBIN 30.7 pg (27.00-32.0); MEAN CORPUSCULAR HGB CONC 32.3 g/dl (32.0-36.0); PLATELET COUNT 388 K/uL (150-450); RED BLOOD COUNT 4.05 M/uL (4.00-6.00); RED CELL DISTRIBUTION WIDTH 17.9 % (11.5-14.5)
[2024-06-22 07:00] LABS: ALBUMIN 2.9 gm/dL (3.4-5.0); BILIRUBIN TOTAL 0.52 mg/dL (0.3-1.2); CALCIUM 9.5 mg/dL (8.5-10.1); GLOBULINA 4.5 G/DL (2.4-3.5); MAGNESIUM 3.1 mg/dL (1.8-2.4); TOTAL PROTEIN 7.4 gm/dL (6.4-8.2)
[2024-06-22 07:23] LABS: GFR 9.07
[2024-06-22 07:29] LABS: CREATININE SERUM 6.19 mg/dL (0.70-1.30)
[2024-06-22 07:30] LABS: PHOSPHOROUS 9.1 mg/dL (2.5-4.9); POTASSIUM 6.74 mEq/L (3.5-5.1)
[2024-06-22] MEDS ORDERED: SODIUM BICARBONATE 50MEQ/50ML VIAL IV ONE (08:49)
[2024-06-22 08:54] LABS: ABG PH 6.973 (7.35-7.45); ABG pCO2 97.6 mmHg (35-45)
[2024-06-22 08:55] LABS: ABG PO2 226.7 mmHg (80-100); BICARBONATE 22.1 mmol/l (23-25); SaO2 99.1 %; Tco2 25.1 mmol/l; allen test SATISFACTORY; o2 100 %; puncture site RADIAL RIGHT
[2024-06-22] MEDS ORDERED: SODIUM BICARBONATE 1 MEQ/ML DISP.SYRIN 50ML IV ONE (09:00)
[2024-06-22] MEDS ORDERED: INSULIN NPH HUMAN ISOPHANE 1,000 UNITS/10 ML UNITS SUBCUTANEO SCH (09:00)
[2024-06-22] MEDS ORDERED: PHENYLEPHRINE HCL 10 MG/ML AMPUL ONE (10:06)
[2024-06-22] MEDS ORDERED: PHENYLEPHRINE HCL 20 MG in 0.9 % SODIUM CHLORIDE 250 ML IV SCH (11:15)
== END 2024-06-22 10:25 | disposition expired ==
LOC: ER 11:28 → ICU-2 19:01 → ICU 06-18 21:43
PROVIDERS: Emergency Medicine; General Practice; Internal Medicine; Internal Medicine Infectious Disease; ADMIT Internal Medicine; ATTEND Internal Medicine
PROC: 02HV33Z Insertion of Infusion Device into Superior Vena Cava, Percutaneous Approach (ICD-10-PCS; principal; 2024-06-19)
PROC: 30233N1 Transfusion of Nonautologous Red Blood Cells into Peripheral Vein, Percutaneous Approach (ICD-10-PCS; 2024-06-19)
PROC: B24BZZZ Ultrasonography of Heart with Aorta (ICD-10-PCS; 2024-06-20)
DX: I13.2 Hypertensive heart and chronic kidney disease with heart failure and with stage 5 chronic kidney disease, or end stage renal disease (principal); J96.00 Acute respiratory failure, unspecified whether with hypoxia or hypercapnia; I21.A1 Myocardial infarction type 2; N18.6 End stage renal disease; R65.20 Severe sepsis without septic shock; T80.211A Bloodstream infection due to central venous catheter, initial encounter; I50.20 Unspecified systolic (congestive) heart failure; R57.0 Cardiogenic shock; I46.9 Cardiac arrest, cause unspecified; Z99.2 Dependence on renal dialysis; E78.5 Hyperlipidemia, unspecified; G47.33 Obstructive sleep apnea (adult) (pediatric); E11.65 Type 2 diabetes mellitus with hyperglycemia; Z79.4 Long term (current) use of insulin; I34.0 Nonrheumatic mitral (valve) insufficiency; D63.1 Anemia in chronic kidney disease; R31.0 Gross hematuria